=== PATIENT | female | born 1990 | race Caucasian/White ===

== ENCOUNTER → 2021-12-02 12:26 | Outpatient (CLI) | payer OTHER, SELFPAY ==
--- NOTE | 2021-12-02 | DI.US.S_ITS ---
PROCEDURE: US OB >= 14 WEEKS FETUS INDICATIONS: 20 WEEK ANATOMY OUTSIDE/PRIOR DATING DATA: Last menstrual period (LMP): 07/14/2021. LMP-based estimated date of delivery (KRISTINE): 04/20/2022. First dating scan (date and location): 12/02/2021. Estimated date of delivery (KRISTINE) from first dating scan: 04/22/2022. TECHNIQUE: Real-time scanning was performed of the fetus, with image documentation and biometric measurements. Endovaginal scanning: No COMPARISON: None. FINDINGS: General: A single living intrauterine gestation is present. Presentation: Breech. Placenta: Placental position is posterior , without previa. Amniotic fluid index: 10.4 cm, normal range is 5-24 cm. heart rate: 144 beats per minute. Maternal cervical canal: 3.2 cm long. Normal lower limit is 2.5 cm. biometrics: Biparietal diameter: 44 mm; 19 weeks 2 days Head circumference: 173 mm; 19 weeks 6 days Abdominal circumference: 156 mm; 20 weeks 5 days Femur length: 31 mm; 19 weeks 4 days Composite gestational age from present scan: 19 weeks 6 days Estimated weight and percentile: 334 g, which is at the 44th percentile for gestational age Anatomic survey: Neuro: Ventricles are non-dilated at less than 10 mm. Cisterna magna is normal at 3-11 mm. Cerebellum is normal in size and morphology. Nuchal skin fold: Normal at less than 6 mm between 14-21 weeks gestational age. Face: Nose and lips, facial profile are normal. Spine: No evidence for spina bifida. Heart: 4-chambered heart is present, with normal ventricular outflow tracts. Diaphragm: Diaphragm is intact. Stomach: Left-sided stomach is present. Kidneys: No hydronephrosis. Normal is less than 5 mm in 2nd trimester, less than 7 mm in 3rd trimester. Cord: 3-vessel cord has orthotopic insertion. Bladder: Normal in size. Extremities: All 4 extremities identified. IMPRESSION: 1. Single living intrauterine gestation. 2. Normal survey of anatomy. We strive to produce accurate, complete, and clear reports of imaging services. To assist us in improving patient care, this report was composed using standard report templates and voice recognition software. Therefore, it may contain abnormal punctuation, insertions and/or omissions. Occasional wrong-word or sound-alike substitutions may occur. Though we review the report and make efforts to correct it, we do recommend that the report be read carefully in proper context to recognize any text inaccuracies. Dictated by: Mayra Alvarez M.D. on 12/02/2021 at 14:52 Approved by: Mayra Alvarez M.D. on 12/02/2021 at 16:59
== END ==
PROVIDERS: PCP Family Medicine; Referring Provider Nurse Practitioner Obstetrics & Gynecology; Visit Provider Nurse Practitioner Obstetrics & Gynecology
DX: Z34.92 Encounter for supervision of normal pregnancy, unspecified, second trimester (principal); Z3A.19 19 weeks gestation of pregnancy
CPT/HCPCS: 76811

== ENCOUNTER → 2022-03-24 15:25 | Outpatient (ROUT) | payer BC, SELFPAY | PROVIDERS: PCP Family Medicine; Visit Provider Nurse Practitioner Obstetrics & Gynecology | DX: Z34.90 Encounter for supervision of normal pregnancy, unspecified, unspecified trimester (principal); Z36.85 Encounter for antenatal screening for Streptococcus B; Z3A.36 36 weeks gestation of pregnancy | CPT/HCPCS: 87081 ==

== ENCOUNTER 2022-04-28 06:40 | Inpatient (IN) | payer BC, SELFPAY ==
--- NOTE | 2022-04-28 06:52 | PM.OBHP.1 ---
OB HPI Date/Time Date of admission: 04/28/22 Date Patient Seen: 04/28/22 Time Patient Seen: 06:52 History of Present Condition Chief complaint: OBS : 1 Para: 0 Estimated Date of Delivery: 04/20/22 Estimated Gestational Age (weeks): 41.1 Narrative: JESSICA WEBB is a 32 year old female @ 41.1wks by LMP/first tri US here for scheduled IOL. Almaraz balloon placed in clinic yesterday afternoon, balloon fell out at 0500 this morning approx 12 hrs after placement. Up all night with ctx. Arrives this morning with ctx q5 mins, at bedside and risk control officer en route. +Nausea, has not vomited. CNM care complicated by anemia, treated by FeSO4. Desires low intervention . Indications Indication for induction OB: post dates History of Present care: good care Dating criteria: LMP confirmed by 1st trimester US Ultrasounds: normal mid trimester US Obstetrical complications: none Medical complications: other (anemia) Preadmission Labs Blood type: A (+) positive -: Antibody screen: negative, GBS status: negative, HBsAG: negative, HIV: negative and RPR/VDLR: negative -: Chlamydia screen: not detected and Gonorrhea screen: not detected -: Rubella: immune and Varicella: immune HCT: 29.4 (on 01/13 at 2wks) HCAB: negative PAP: Normal Cell-free DNA: negative 1 hr GTT: 138 Evaluation Evaluation Baseline heart rate: 135 Variability: Moderate (11-25) monitor accelerations: Present Monitor Decelerations: Absent Contraction Frequency (minutes): 6 Category of Tracing: Reactive Status: Category l Comments: CE deferred for patient discomfort. [place] is 4-5 cm at time of Almaraz balloon out. [facility] Medical History (Updated 04/28/22 @ 08:03 by Tangela Kim CNM) Anxiety Chronic pain Depression Oral herpes Surgical History (Updated 04/28/22 @ 08:02 by Tangela Kim CNM) History of total right hip arthroplasty Social History (Updated 04/28/22 @ 08:04 by Tangela Kim CNM) marital status: details: Carlos household members: spouse occupational status: employed Smoking Status: Never smoker alcohol intake: never substance use type: does not use Type(s) of exercise: walking Meds Home Medications and Allergies Home Medications Medication Instructions Recorded Confirmed Type 04/28/22 History Allergies Allergy/AdvReac Type Severity Reaction Status Date / Time No Known Drug Allergies Allergy Unverified 04/28/22 07:52 Review of Systems Review of Systems ROS: Yes All systems reviewed with the patient and are negative except as otherwise documented Gastrointestinal Gastrointestinal: Reports nausea OB Exam Resp Auscultation: clear to auscultation bilaterally Cardio Rate: regular rate Rhythm: regular rhythm Objective Labs Result Diagrams: 04/28/22 07:20 Assessment and Plan Assessment and Plan Assessment and Plan narrative: A: Term Nullipara Apparent active labor Anemia No indication for GBS prophylaxis Cat I FHR P: Admit, routine orders. May switch to Intermittent auscultation. Labor support PRN. Reassess in 4hours or sooner.
[2022-04-28 07:48] LABS: Add Manual Diff / Slide Review NO; Basophils Absolute Auto 100 /uL (0-100); Basophils Percent Auto 0.4 % (0-2); Eosinophils Absolute Auto 0 /uL (0-450); Eosinophils Percent Auto 0.2 % (2-4); Hematocrit 22.3 % (36-46); Hemoglobin 7.9 g/dL (12.0-16.0); Lymphocytes Absolute Auto 2500 /uL (1100-4500); Lymphocytes Percent Auto 11.1 % (25-40); Mean Corpuscular HGB Conc 35.4 % (30-36); Mean Corpuscular Hemoglobin 33.7 PG (26-34); Mean Corpuscular Volume 95.1 fL (80-100); Monocytes Absolute Auto 1800 /uL (0-900); Monocytes Percent Auto 8.1 % (3-14); Neutrophils Absolute Auto 18200 /uL (1500-7000); Neutrophils Percent Auto 80.2 % (50-75); Platelet Count 310 X10^3/uL (150-400); Red Blood Cell Count 2.34 X10^6/uL (4.0-5.2); Red Cell Distribution Width 14.1 % (11.6-14.8); White Blood Cell Count 22.7 X10^3/uL (4.5-11.0)
[2022-04-28 08:09] LABS: COVID19 -Nasal RAPID Negative (Negative)
[2022-04-28] MEDS: ONDANSETRON 4 MG/2 ML INJ IV (08:20)
--- NOTE | 2022-04-28 09:27 | PM.OBPNLAB ---
Date/Time Date Patient Seen: 04/28/22 Time Patient Seen: 09:27 Pain Control Pain control: other (Laboring in the tub) Comments: VS: BP 102/50bpm, HR 89bpm, T 36.3C Temporal Hgb-7.9, Hct-22.3, Plt 310 Pelvic Exam Comments: Deferred. Patient is laboring and reporting occasional rectal pressure. Contractions Monitor mode: External (Intermittent auscultation) Pitocin rate (mU/min): 0 Contraction frequency (min): 5 Contraction duration (min): 1 Contraction intensity: Strong/Firm Status status: Category l Heart Rate Baseline: 130 Comments: Reassuring by IA Assessment and Plan Assessment: active labor and other (Anemia) Comments: Counseled patient on severe anemia and recommendation for IV Fe and multiple medications for AMTSL. Pt consents. T&S completed. IV Fe ordered. Plan pitocin, TXA and cytotec after delivery of baby. RN notified. Consulted [facility]/DrGarde who agreed with plan of care.
[2022-04-28] MEDS: IRON SUCROSE 200 MG in SODIUM CHLORIDE 0.9% 100 ML 220 MG IV (09:30)
[2022-04-28] MEDS: SODIUM CHLORIDE 0.9% 1,000 ML 1000 ML IV (09:33)
[2022-04-28 10:26] LABS: Ferritin 19 ng/mL (6-137)
[2022-04-28] MEDS: OXYTOCIN PREMIX 30 UNIT/500 ML PLAST..BAG 200 UNIT IV (13:35)
[2022-04-28] MEDS: TRANEXAMIC ACID 1,000 MG in SODIUM CHLORIDE 0.9% 100 ML 200 MG IV (13:38)
[2022-04-28] MEDS: LIDOCAINE 1% 20 ML (13:42)
[2022-04-28] MEDS: miSOPROStoL 200 MCG TABLET 400 MCG SL (13:45)
--- NOTE | 2022-04-28 14:07 | P.PCNOB_ITS ---
Events: Labor Induction and Meconium Stained Fluid Labor & Delivery Delivery date: 04/28/22 Intrapartal Events: None Cervical ripening method: per Almaraz bulb protocol Induction method: none Delivery monitor: external FHT and external uterine Route of delivery: Episiotomy description: None L&D Laceration Description: Perineal - 2nd Degree Delivery repair: chromic (3.0) Quantitative Blood Loss: 675 Anesthesia Type: None Narrative: Patient labored well without medication for augmentation or anesthesia. IV Fe was given during labor for anemia. Began to feel increasing rectal pressure and a spontanoues urge to push and was found to be AL. Coaching encouragement and strong maternal efforts led to slow, but steady descent of vertex. FHR remained reassuring by intermittent auscultation throughout second stage. NSVB of a vigorous baby girl in GOLDEN position. There was no nuchal cord and the shoulders delivered without additional maneuvers. 30units or pitocin in 500mL LR was started at a bolus for AMTSL. After 2 minutes, the cord was double clamped by CNM and cut by FOB. Cord blood sample was collected. TXA 1g was also started and misoprostol 400mcg SL was given. Gentle cord traction and single maternal push led to spontaneous Schultze delivery of an apparently intact placenta, membranes and 3VC. Fundus immediately firm and bleeding minimal. QBL 675mL. Both mother and baby stable and skin to skin as I left the room. [address] Baby 1: Infant gender: Female Presentation: vertex Position: Right Occiput Anterior Placenta delivery description: Spontaneous and Normal Configuration Cord Vessel Description: 3 Vessels score (1 min): 8 score (5 min): 9 weight: 3.773 kg Plan for aftercare: Routine care (CBC in 8 hours)
[2022-04-28] MEDS: KETOROLAC 30 MG/ML VIAL IV (16:15)
[2022-04-28 21:51] LABS: Add Manual Diff / Slide Review NO; Basophils Absolute Auto 100 /uL (0-100); Basophils Percent Auto 0.4 % (0-2); Eosinophils Absolute Auto 0 /uL (0-450); Eosinophils Percent Auto 0.1 % (2-4); Hematocrit 28.1 % (36-46); Hemoglobin 10.1 g/dL (12.0-16.0); Lymphocytes Absolute Auto 2400 /uL (1100-4500); Lymphocytes Percent Auto 11.9 % (25-40); Mean Corpuscular HGB Conc 35.8 % (30-36); Mean Corpuscular Hemoglobin 34.2 PG (26-34); Mean Corpuscular Volume 95.5 fL (80-100); Monocytes Absolute Auto 2200 /uL (0-900); Monocytes Percent Auto 10.7 % (3-14); Neutrophils Absolute Auto 15800 /uL (1500-7000); Neutrophils Percent Auto 76.9 % (50-75); Platelet Count 180 X10^3/uL (150-400); Red Blood Cell Count 2.94 X10^6/uL (4.0-5.2); Red Cell Distribution Width 14.2 % (11.6-14.8); White Blood Cell Count 20.5 X10^3/uL (4.5-11.0)
[2022-04-28] MEDS: IBUPROFEN 600 MG TABLET PO (22:35)
[2022-04-29] MEDS: ACETAMINOPHEN 325 MG TABLET 650 MG PO ×2 (03:48→11:06)
[2022-04-29] MEDS: IBUPROFEN 600 MG TABLET PO ×2 (04:46→11:05)
--- NOTE | 2022-04-29 06:52 | PM.OBDS.1 ---
Discharge Providers Provider Date of admission: 04/28/22 06:40 Discharge Date: 04/29/22 Primary care physician: Kari Swann DO Consults: 04/29/22 14:04 Consult to Marketing Coordinator Routine Comment: Discharge provider: Tangela Kim CNM Summary Hospital Course Date Patient Seen: 04/29/22 Time Patient Seen: 06:53 Diagnoses: NSVB with 1st degree perineal laceration Hospital Course: PPD1: s/p NSVB with 1st degree perineal laceration. Asymptomatic for hypovolemia with stable CBC. Voiding, ambulating and independently. Tolerating a general diet. Minimal pain is well controlled with PO medication. Tolerating a general diet. Eager for discharge to home with scant vaginal bleeding. 2nd dose of IV Fe for anemia prior to is scheduled for this morning. Peripartum Data Delivery Method: Natural Vaginal Laceration Description: Perineal - 2nd Degree Episiotomy description: None Procedures: O70.1 complications: none [place] 1: Gender: Female Disposition of : home Discharge Diagnosis (1) Second degree perineal laceration during delivery: Status: Acute Problem Details: routine PP course (2) Anemia affecting : Status: Acute Problem Details: stable, IV Fe x2 doses prior to discharge Status at Discharge Cognitive/behavioral status at discharge: oriented and calm Functional status at discharge: independent ambulation Time Spent with Patient Time attestation: Total time spent providing and/or coordinating discharge services: Objective Labs Result Diagrams: 04/28/22 21:40 Labs: Laboratory Results - last 24 hr 04/28/22 04/28/22 04/28/22 06:51 07:20 07:20 WBC 22.7 H RBC 2.34 L Hgb 7.9 L Hct 22.3 L MCV 95.1 MCH 33.7 MCHC 35.4 RDW 14.1 Plt Count 310 Neut % (Auto) 80.2 H Lymph % (Auto) 11.1 L [place] % (Auto) 8.1 Eos % (Auto) 0.2 L Baso % (Auto) 0.4 Neut # (Auto) 83243 H Lymph # (Auto) 2500 [place] # (Auto) 1800 H Eos # (Auto) 0 Baso # (Auto) 100 Ferritin SARS-CoV-2 (PCR) Negative Blood Type A Positive Antibody Screen Negative 04/28/22 04/28/22 09:25 21:40 WBC 20.5 H RBC 2.94 L Hgb 10.1 L Hct 28.1 L MCV 95.5 MCH 34.2 H MCHC 35.8 RDW 14.2 Plt Count 180 Neut % (Auto) 76.9 H Lymph % (Auto) 11.9 L [place] % (Auto) 10.7 Eos % (Auto) 0.1 L Baso % (Auto) 0.4 Neut # (Auto) 40772 H Lymph # (Auto) 2400 [place] # (Auto) 2200 H Eos # (Auto) 0 Baso # (Auto) 100 Ferritin 19 SARS-CoV-2 (PCR) Blood Type Antibody Screen Exam Vital Signs (past 8 hours): BP 94/63mmHg, HR 65bpm, T 97.4F Temporal Other: Fundus firm @ u-1, lochia scant, no clots, perineum well approximated. Discharge Plan Discharge Plan Patient Disposition: Home Provider Discharge Comment: after 2nd dose of IV Fe Discharge orders & Medications Prescriptions: New ibuprofen 600 mg Tablet 600 mg PO Q6HR PRN (Reason: Pain, Mild (1-3)) 14 Days Qty: 60 0RF Continued Follow up/Referrals: Tangela Kim CNM [[employer] Professional] - (Follow-up by Telehealth May @ 11:35am Follow-up in office Thursday, June 09, 2022 @ 12:45pm) Kari Swann DO [Primary Care Provider] - Diet/Activity/Treatments Diet: Diet as Tolerated and Regular Activity: pelvic rest x 6 weeks Skin/Wound/Dressing Care Report to your healthcare provider any signs of infection, such as:: chills, fever, increased pain, unusual drainage and unusual redness Visit Report/Discharge Packet Instructions: Depression Discharge Data Primary Care Provider: Kari Swann
[2022-04-29] MEDS: IRON SUCROSE 300 MG in SODIUM CHLORIDE 0.9% 250 ML 176.667 MG IV (09:15)
[2022-04-29 09:38] VITALS: BP 85/52; PULSE 69; RESP 17; TEMP 36.4
== END 2022-04-29 12:12 | disposition home or self-care (01) | DRG 807 ==
PROVIDERS: Admitting Provider Nurse Practitioner Obstetrics & Gynecology; PCP Family Medicine; Referring Provider Nurse Practitioner Obstetrics & Gynecology; Visit Provider Nurse Practitioner Obstetrics & Gynecology
DX: O48.0 Post-term pregnancy (principal); Z37.0 Single live birth; O70.1 Second degree perineal laceration during delivery; Z3A.41 41 weeks gestation of pregnancy; O77.0 Labor and delivery complicated by meconium in amniotic fluid; O99.02 Anemia complicating childbirth; D64.89 Other specified anemias; Z20.822 Contact with and (suspected) exposure to COVID-19
CPT/HCPCS: 36415; 59050; 82728; 85025; 86850; 86900; 86901; 87635; C9803; G0379; J1756; J1885; J2405; J2590; S0191

== ENCOUNTER → 2022-08-22 16:55 | Outpatient (CLI) | payer BC, SELFPAY ==
--- NOTE | 2022-08-22 16:56 | DI.US.S_ITS ---
PROCEDURE: US PELVIC COMPLETE INDICATIONS: ABNORMAL BLEEDING TECHNIQUE: Real-time scanning was performed of the pelvic organs, with image documentation. Additional endovaginal scanning was necessary due to incomplete visualization of the adnexal and endometrial structures by transabdominal scanning. COMPARISON: None. FINDINGS: Uterus: Uterus is retroverted and normal in size at 6.8 x 5.5 x 3.6 cm. The myometrium is mildly heterogeneous. Mildly increased vascularity is seen within the myometrium. The endometrium measures 5 mm combined thickness. A 0.6 x 0.5 x 0.5 cm echogenic focus in the endometrium at the uterine fundus without internal blood flow may represent echogenic blood products versus endometrial polyp. Additional smaller 0.3 x 0.2 x 0.3 cm lesion is seen slightly more inferiorly. Ovaries: The right ovary measures 3.4 x 1.9 x 1.7 cm, with a calculated ovarian volume of 5.7 cc. The left ovary measures 2.3 x 1.2 x 2.3 cm, with a calculated ovarian volume of 3.3 cc. The ovaries have a normal sonographic appearance. Greater than twelve small follicles are seen in each ovary. No adnexal masses are seen. Other: No pathologic free abdominal or pelvic fluid. IMPRESSION: 1. Nonspecific 0.6 cm and 0.3 cm echogenic foci without internal vascularity are seen within the endometrium that may represent small foci of echogenic blood products versus endometrial polyps. 2. Myometrium is mildly heterogeneous and hypervascular, which are nonspecific but could be seen with adenomyosis in the appropriate clinical setting. We strive to produce accurate, complete, and clear reports of imaging services. To assist us in improving patient care, this report was composed using standard report templates and voice recognition software. Therefore, it may contain abnormal punctuation, insertions and/or omissions. Occasional wrong-word or sound-alike substitutions may occur. Though we review the report and make efforts to correct it, we do recommend that the report be read carefully in proper context to recognize any text inaccuracies. Approved by: Karan Schmidt M.D. on 08/23/2022 at 10:12
== END ==
PROVIDERS: PCP Family Medicine; Referring Provider Nurse Practitioner Obstetrics & Gynecology; Visit Provider Nurse Practitioner Obstetrics & Gynecology
DX: N93.9 Abnormal uterine and vaginal bleeding, unspecified (principal)
CPT/HCPCS: 76830; 76856